=== PATIENT | male | born 1955 | race Caucasian/White ===

== ENCOUNTER 2021-04-27 16:50 | Emergency (ER) | payer MEDICARE, MEDICAID ==
[~2021-04-27] VITALS: Ht 170.2 cm; Wt 82.0 kg
[2021-04-27] MEDS ORDERED: ACETAMINOPHEN 325MG TABLET PO ONE (18:30)
[2021-04-27] MEDS ORDERED: ACET650T37 MT (20:29)
[2021-04-27 21:26] VITALS: BP 128/82
== END 2021-04-27 21:29 | disposition home or self-care (01) ==
LOC: ER 16:50
DX: M54.2 Cervicalgia (principal); M54.50 Low back pain, unspecified; M25.512 Pain in left shoulder; M54.12 Radiculopathy, cervical region; M48.02 Spinal stenosis, cervical region; M54.6 Pain in thoracic spine; S60.019A Contusion of unspecified thumb without damage to nail, initial encounter; E11.9 Type 2 diabetes mellitus without complications; I10 Essential (primary) hypertension; E78.00 Pure hypercholesterolemia, unspecified; V43.52XA Car driver injured in collision with other type car in traffic accident, initial encounter; Y93.89 Activity, other specified; Y92.410 Unspecified street and highway as the place of occurrence of the external cause; Z98.890 Other specified postprocedural states
CPT/HCPCS: 72070; 72100; 73030; 73140; 99284